=== PATIENT | male | born 1960 | race Caucasian/White ===

== ENCOUNTER 2021-02-18 09:08 | Day surgery (SDC) | payer BC ==
[~2021-02-18] VITALS: Ht 190.5 cm; Wt 177.8 kg
[2021-02-18 09:35] VITALS: BP 146/72
[2021-02-18] MEDS ORDERED: SITA1TAB6 PO (10:08)
[2021-02-18] MEDS ORDERED: GEMF600T89 PO (10:08)
[2021-02-18] MEDS ORDERED: TOPI25TA49 PO (10:09)
[2021-02-18] MEDS ORDERED: AMLO10TA13 PO (10:10)
[2021-02-18] MEDS ORDERED: NEBI10TA2 PO (10:11)
[2021-02-18] MEDS ORDERED: ATOR20TA PO (10:11)
[2021-02-18] MEDS ORDERED: PIOG45TA65 PO (10:12)
[2021-02-18] MEDS ORDERED: ESCI10TA PO (10:14)
[2021-02-18] MEDS ORDERED: vitamin D PO (10:14)
[2021-02-18] MEDS ORDERED: APIX5TAB3 PO (10:15)
[2021-02-18] MEDS ORDERED: ASCO500C18 PO (10:16)
[2021-02-18 11:24] VITALS: BP 148/73
[2021-02-18 11:39] VITALS: BP 160/79
[2021-02-18 11:42] VITALS: BP 156/77
[2021-02-18 11:54] VITALS: BP 147/70
[2021-02-18 12:09] VITALS: BP 151/66
== END 2021-02-18 12:15 | disposition home or self-care (01) ==
LOC: SSTAY O 09:08
PROVIDERS: ATTEND Radiology Vascular & Interventional Radiology
DX: R59.0 Localized enlarged lymph nodes (principal); C91.10 Chronic lymphocytic leukemia of B-cell type not having achieved remission; I10 Essential (primary) hypertension; E78.5 Hyperlipidemia, unspecified; E11.9 Type 2 diabetes mellitus without complications; G47.30 Sleep apnea, unspecified; Z87.891 Personal history of nicotine dependence; Z86.16 Personal history of COVID-19; Z72.89 Other problems related to lifestyle; Z79.01 Long term (current) use of anticoagulants; Z79.899 Other long term (current) drug therapy; Z80.6 Family history of leukemia
CPT/HCPCS: 38505; 76942